=== PATIENT | female | born 1985 | race Caucasian/White ===

== ENCOUNTER → 2020-06-17 16:59 | Outpatient (CLI) | payer OTHER, SELFPAY | PROVIDERS: PCP Family Medicine; Visit Provider Obstetrics & Gynecology | DX: Z03.818 Encounter for observation for suspected exposure to other biological agents ruled out (principal) | CPT/HCPCS: 87635; C9803; U0002 ==

== ENCOUNTER 2020-06-20 07:00 | Inpatient (IN) | payer OTHER, SELFPAY ==
[2017-08-06 17:22] VITALS: BMI 25.8
[2020-06-20] VITALS (19 sets, daily range): BP systolic 117–159; BP diastolic 66–94; PULSE 66–88; RESP 16–18; TEMP 36.6–36.8; O2SAT 95–96; BMI 32.4
[2020-06-20 08:15] LABS: Absolute Lymphocyte Count 2.35 X10^3/uL (0.83-4.51); Absolute Neutrophil Count 9.8 X10^3/uL (2.0-7.7); Basophil# 0.03 X10^3/uL; Basophil% 0.2 % (0-1); Eosinophil# 0.09 X10^3/uL; Eosinophils% 0.7 % (0-5); Hematocrit 38.8 % (37-47); Hemoglobin 13.2 g/dL (12.0-15.0); Lymphocyte # 2.35 X10^3/ul (4.0); Lymphocyte % 18.2 % (19-41); Mean Corpuscular Hgb 31.8 pg (27.0-32.0); Mean Corpuscular Volume 93.5 fL (81-99); Mean Platelet Vol. 9.2 fl (6.2-12.0); Monocyte# 0.62 X10^3/uL; Monocyte% 4.8 % (0-10); NRBC Flagged by Analyzer 0 % (0-5); Neutrophil # 9.77 X10^3/uL (2.7-7.7); Neutrophil % 75.6 % (47-70); Platelet Count 295 K/mm3 (150-450); RBC Distribution Width CV 13.4 % (11.6-14.6); RBC Distribution Width SD 45.8 fl (35.1-43.9); Red Blood Count 4.15 M/mm3 (4.2-5.4); White Blood Count 12.9 K/mm3 (4.4-11.0)
[2020-06-20] MEDS: Lactated Ringers 1,000 ML 50 ML IV (08:22)
[2020-06-20] MEDS: Oxytocin 30 units/NS 500 ml 30 UNITS/500 ML IV.SOLN IV (08:26)
--- NOTE | 2020-06-20 08:42 | PCM.HP.OB ---
- Problem List (1) AMA (advanced maternal age) multigravida 35+ Status: Acute (2) with 39 completed weeks gestation Status: Acute (3) Encounter for induction of labor Status: Acute History Date of Admission: 06/20/20 Final JOSE: 06/26/20 Final JOSE Source: [place] <20 weeks Gestational age: 39 Weeks and 1 Days History of this : This is a 35 year-old, G [3], P [1011], at 39.1 weeks gestational age for induction of labor due to Advanced Maternal Age. was complicated by a low lying placenta in second trimester. Patient seen by MFM and is appropriate for labor with . She is RH negative and received Rhogam injection at 28 weeks gestation. Allergies No Known Allergies Allergy (Verified 08/06/17 17:25) Smoking Status: Never smoker Number of Fetus(es): 1 NST - FHR Rate Baby A Baseline: 125 Variability:: Moderate Accelerations:: 15 x 15 Decelerations:: None NST Reactive:: Yes, Appropriate for gestational age FHR Category:: Category I Uterine Activity:: TOCO reading every 2-3 minutes. Palpate mild to moderate and relaxed in between. History Past Pregnancies: Past Pregnancies Delivery Date Name GA/ Weeks Outcome Route Wt Infant Sex Labor Length Anesthesia Delivery Location Provider FOB Labs: B negative Rubella- Immune HB- neg HB- neg RPR- NR HIV- NR GBS- negative COVID-19- negative 06/19/20 Expected Delivery Method: Spontaneous Vaginal Review of Systems Constitutional: Denies: Chills, Fever, Weight Change HEENT: Denies: Head Aches, Sinus Congestion, Sinus Drainage Cardiovascular: Denies: Chest Pain, Palpitations Respiratory: Denies: Cough, Shortness of breath at rest, Sputum production Gastrointestinal: Denies: Abdominal Pain, Nausea, Vomiting Genitourinary: Denies: Dysuria Musculoskeletal: Denies: Joint Pain, Joint Tenderness Neurological: Denies: Numbness, Tingling, Focal weakness Psychiatric: Denies: Anxiety, Depression Physical Exam Vitals: Vital Signs Temp Pulse BP 97.9 F 66 142/91 H 06/20/20 08:30 06/20/20 08:28 06/20/20 08:28 General: Alert, Oriented x3, Cooperative, No apparent distress HEENT: Atraumatic Cardiovascular: Regular rate Lungs: Normal air movement Abdomen: Soft, Non Tender, Gravid Neurological: Cranial nerves II-XII grossly intact Estimated gestational size: Appropriate for gestational size Presentation: Cephalic Cervix Dilation (cm): 3 Station: -2 Effacement (%): 60 Assessment/Plan All Active Problems (Last Reviewed 08/06/17 @ 17:26 by Sofia Figueroa) AMA (advanced maternal age) multigravida 35+ (Acute) with 39 completed weeks gestation (Acute) Encounter for induction of labor (Acute) Sinusitis, acute (Acute) This is a 35 year-old, G [3], P [1], at 39.1 weeks gestational age for induction of labor for AMA Admit to labor and delivery Routine labs GBS negative COVID-19 negative IV fluids per policy Start Pitocin IV and titrate per policy Epidural if indicated Anticipate Dr. Tinoco updated and is collaborating physician
[2020-06-20] MEDS: Oxytocin 30 units/NS 500 ml 30 UNITS/500 ML IV.SOLN 334 UNITS IV (12:28)
--- NOTE | 2020-06-20 13:08 | PCM.OPRPT ---
Problem List (1) AMA (advanced maternal age) multigravida 35+ Status: Acute (2) with 39 completed weeks gestation Status: Acute (3) Encounter for induction of labor Status: Resolved (4) (spontaneous vaginal delivery) Status: Acute (5) Second degree perineal laceration Status: Acute Report of Operation Date of Procedure: 06/20/20 Vaginal Delivery Maternal Presentation: Medically Indicated Induction Method of Induction: Pitocin Medical Reason for Induction: - - AMA Amniotic Membrane Rupture Type: Spontaneous Rupture of Membrane time: 1200 Amniotic Fluid Description: Clear Final JOSE: 06/26/20 Final JOSE Source: LMP Gestational age: 39 Weeks and 1 Days Date of Procedure: 06/20/20 Pre-Operative Diagnosis: Term gestation, AMA Post-Operative Diagnosis: Same, live female Surgery/ Procedure Performed: Spontaneous Vaginal Delivery Type of Anesthesia: Local with 1% lidocaine Description of Procedure: Called to patient's room due to patient feeling pressure. In hands and knees position. SROM for clear fluid. Complete dilation with involuntarily bearing down with contractions. Delivery of head with minimal effort followed quickly by anterior then posterior shoulders and remainder of infant. Vigorous infant placed skin to skin with patient. 3 vessel cord clamped and cut by FOB after 3 minutes and no further pulsation. Patient repositioned to lithotomy position. Pitocin IV started for active management of the third stage. Placenta delivered spontaneously and intact. Perineum inspected and revealed second degree perineal laceration. Laceration repaired in usual fashion with 3-0 Vicryl Rapide and lidocaine. Laceration well approximated and hemostatic. Patient tolerated procedure well. Vaginal sweep completed by me. All needles, sponges and instruments accounted for. Fundus firm 1 below. EBL 200cc. APGARS 8/[address] bonding well[address] Dr. Summers notified of delivery. Presentation: Vertex Placental Delivery Description: Spontaneous Placenta Disposition: [facility] Cord Vessel Description: 3 Vessels Cord Entanglement: None Estimated Blood Loss: 200 A gender: Female (1 minute): 8 (5 minute): 9 Episiotomy Description: None Laceration: Perineal Extension/lac, 2nd degree Medications given after delivery: IV Pitocin
[2020-06-20] MEDS: Ibuprofen 600 MG Tablet PO (13:45)
[2020-06-20] MEDS: Acetaminophen 500 MG Tablet 1000 MG PO (15:28)
[2020-06-21] VITALS (9 sets, daily range): BP systolic 118–129; BP diastolic 60–99; PULSE 68–90; RESP 14–16; TEMP 36.3–36.7; O2SAT 92–97
[2020-06-21] MEDS: Ibuprofen 600 MG Tablet PO (06:16)
--- NOTE | 2020-06-21 12:13 | PCM.PN.OB ---
Patient Problems: Active and Suspected Problems (Last Reviewed 08/06/17 @ 17:26 by Sofia Figueroa) AMA (advanced maternal age) multigravida 35+ (Acute) with 39 completed weeks gestation (Acute) (spontaneous vaginal delivery) (Acute) Second degree perineal laceration (Acute) - Physical Exam Vitals/I&O's: Vital Signs Temp Pulse Resp BP Pulse Ox 98.1 F 89 16 118/79 92 06/21/20 08:30 06/21/20 08:42 06/21/20 08:30 06/21/20 08:41 06/21/20 08:42 Oxygen Delivery Method Room Air Weight: 195 lb Body Mass Index (BMI) 32.4 Intake and Output for Last 24 Hours 06/19/20 06/20/20 06/21/20 23:59 23:59 23:59 Intake Total 711.33 / 711.33 Output Total 200 / 200 Balance 511.33 / 511.33 Current Medications Acetaminophen (Acetaminophen 500 Mg Tablet) 1,000 mg PO Q8H PRN PRN PRN Reason: Pain Score 1-3 Last Admin: 06/20/20 15:28 Dose: 1,000 mg Documented by: Bisacodyl (Bisacodyl 10 Mg Suppository) 10 mg RC UD PRN PRN Reason: If no BM Dibucaine (Dibucaine 30 Gm Tube) 1 applic TOPICAL TID PRN PRN; Protocol PRN Reason: Discomfort Hydrocortisone (Hydrocortisone 2.5% Crm) 1 applic TOPICAL TID PRN PRN; Protocol PRN Reason: Discomfort Ibuprofen (Ibuprofen 600 Mg Tablet) 600 mg PO Q6H PRN PRN PRN Reason: Pain Score 1-3 Last Admin: 06/21/20 06:16 Dose: 600 mg Documented by: Methylergonovine Maleate (Methylergonovine 0.2 Mg/Ml Ampul) 0.2 mg IM X1 PRN PRN Reason: Excess bleeding/uterine atony Ondansetron HCl (Ondansetron 4 Mg/2 Ml Vial) 4 mg IV Q4H PRN PRN PRN Reason: Nausea Senna/Docusate Sodium (Senna/Docusate Sodium 1 Tablet) 1 - 2 tablet PO DAILY PRN PRN PRN Reason: Constipation Simethicone (Simethicone 80 Mg Tablet) 80 mg PO PCHS PRN PRN Reason: Indigestion/Stomach pain Sodium Chloride (0.9% Saline Lock 10 Ml Syringe) 5 - 15 ml IV UD PRN PRN Reason: SALINE FLUSH Throat Lozenges (Benzocaine/Lanolin/Aloe Vera 1 Applic Each) 1 applic TOPICAL 4X/DAY PRN PRN; Protocol PRN Reason: pain Medical Necessity - Tobacco Use Smoking Status: Former smoker Assessment/Plan All Active Problems (Last Reviewed 08/06/17 @ 17:26 by Sofia Figueroa) AMA (advanced maternal age) multigravida 35+ (Acute) with 39 completed weeks gestation (Acute) Encounter for induction of labor (Resolved) (spontaneous vaginal delivery) (Acute) Second degree perineal laceration (Acute) Sinusitis, acute (Acute)
--- NOTE | 2020-06-21 12:14 | DCINST_ITS ---
Discharge Diet: No Restrictions Discharge Activity: Return to Normal Activity, May not drive while taking narcotic pain medications., May Shower May resume sexual activity in: 4-6 weeks Weight Bearing Status: Full weight bearing Additional Activity Instructions:: Nothing in the vagina for 4-6 weeks. You may return to work/school in 6 weeks. Call your doctor if your incision/area has: Continuous Slow Oozing, Sudden Increased Bleeding, Increased Pain/ Swelling, Increased Redness, Foul Smelling Discharge Additional Instructions: If you experience any of the following, contact your healthcare provider. * Bleeding that soaks a pad every hour for 2 hours * Fever 100.4 or higher * Unrelieved incision or abdominal pain * Swelling, redness, discharge or bleeding from your incision or epis iotomy site * Your incision begins to separate * Problems urinating (including inability to urinate or burning while urinating). * Visual changes * Severe headache * Flu-like symptoms * Pain or redness in one of both of your breasts * Pain, warmth, tenderness or swelling in your legs, especially the calf area * Frequent nausea and vomiting * Symptoms of depression or anxiety If you experience any of the following, call 911 or go to the nearest Emergency Room. * Chest pain * Problems breathing * Seizure activity * Partial or complete paralysis of a body part, slurred speech, weakness or drooping of the face, or a sudden inability to walk or hold your balance Allergies/Adverse Reactions: Allergies No Known Allergies Allergy (Verified 08/06/17 17:25) Medications to take at Discharge Ibuprofen [Motrin] 600 mg PO Q6H PRN PRN tablet 06/21/20 Please Follow Up With: Yris Banerjee CNM When: Call to make an appointment with your doctor in 6 weeks. If you had elevated Blood Pressure or 4th degree laceration you will need to be seen in 2 weeks. Primary Care Physician: Sergio Shi III, MD [Primary Care Provider] - Test Results: Test results from this visit will be discussed in further detail at your follow- up appointment, if applicable.
--- NOTE | 2020-06-25 19:15 | NURSING ---
LEft message re: follow up phone call
== END 2020-06-21 14:30 | disposition home or self-care (01) | DRG 806 ==
PROVIDERS: Obstetrics & Gynecology; Admitting Provider Advanced Practice Midwife; PCP Family Medicine; Visit Provider Advanced Practice Midwife
DX: O70.1 Second degree perineal laceration during delivery (principal); O44.43 Low lying placenta NOS or without hemorrhage, third trimester; Z37.0 Single live birth; Z67.91 Unspecified blood type, Rh negative; Z87.891 Personal history of nicotine dependence; Z3A.39 39 weeks gestation of pregnancy
CPT/HCPCS: 59025; 59050; 85025; 86850; 86900; 86901; 99218; J7120; G0378

== ENCOUNTER 2021-04-07 16:36 | Outpatient (CLI) | payer OTHER, SELFPAY | END 2021-04-07 23:59 | disposition short-term general hospital (02) | PROVIDERS: Visit Provider Family Medicine | DX: Z20.822 Contact with and (suspected) exposure to COVID-19 (principal) | CPT/HCPCS: 87635; U0003; U0005 ==